=== PATIENT | male | born 1975 | race Asian ===

== ENCOUNTER 2018-08-24 09:58 | Day surgery (SDC) | payer OTHER ==
[~2018-08-24] VITALS: Ht 172.7 cm; Wt 85.0 kg
[2018-08-24] MEDS ORDERED: ATORVASTATIN (11:20)
[2018-08-24] MEDS ORDERED: METFORMIN (11:20)
[2018-08-24] MEDS ORDERED: LOSARTAN (11:20)
[2018-08-24 11:35] VITALS: BP 146/88; PULSE 84; RESP 18
[2018-08-24 11:36] VITALS: Ht 172.7 cm; Wt 85.0 kg
[2018-08-24] MEDS ORDERED: MIDAZOLAM 1 MG/ML 2 ML INJ ONE ×2 (12:09)
[2018-08-24] MEDS ORDERED: FENTAnyl 50 MCG/ML VIAL ONE (12:09)
== END 2018-08-24 16:09 | disposition home or self-care (01) ==
LOC: GIL 09:58
PROVIDERS: ATTEND Internal Medicine Gastroenterology
DX: Z12.11 Encounter for screening for malignant neoplasm of colon (principal); D12.2 Benign neoplasm of ascending colon; D12.8 Benign neoplasm of rectum; E11.9 Type 2 diabetes mellitus without complications
CPT/HCPCS: 45380; 82962; 88305; J2250; J3010; Z7610